=== PATIENT | male | born 1965 | race Caucasian/White ===

== ENCOUNTER 2017-04-26 23:15 | Emergency (ER) | payer BC ==
[~2017-04-26] VITALS: Ht 180.3 cm; Wt 106.8 kg
[~2017-04-26 23:15] MED LIST: ALPRAZOLAM0.5 MG PO; LORTAB 5-325 M1 EACH PO; MOTRIN600 MG PO; NOHOMEMEDS; SERTRALINE HCL100 MG PO
[2017-04-27 00:06] LABS: BASOPHIL COUNT 0.1 K/uL (0-0.1); EOSINOPHIL (%) 1.4 % (0-5); EOSINOPHIL COUNT 0.1 K/uL (0-0.3); HEMATOCRIT 43.8 % (38.0-50.0); IMMATURE GRANULOCYTE (%) 0.4 % (0.0-0.7); INSTRUMENT ABS NEUTROPHIL CT 5.8 K/uL; LYMPHOCYTE COUNT 1.3 K/uL (1.0-2.8); MCH 31.2 PG (29.0-34.0); MCHC 33.8 G/DL (30.0-36.0); MCV 92.4 FL (86-99); MEAN PLAT.VOLUME 9.7 uM^3 (9.0-12.4); MONOCYTE (%) 9.7 % (3-12); MONOCYTE COUNT 0.8 K/uL (0-0.8); NEUTROPHIL (%) 71.6 % (45-76); NEUTROPHIL COUNT 5.8 K/uL (1.8-6.4); PLATELET COUNT 176 K/uL (156-360); RBC DIS.WIDTH-CV 12.4 % (11.8-14.6); RBC DIS.WIDTH-SD 42.5 % (39-53); RED BLOOD COUNT 4.74 M/uL (4.00-5.50); WHITE BLOOD COUNT 8.1 K/uL (4.1-10.2)
[2017-04-27 00:18] LABS: CHLORIDE 106 mEq/L (99-109); POTASSIUM 3.2 mEq/L (3.7-5.4)
[2017-04-27 00:19] LABS: SODIUM 143 mEq/L (136-147)
[2017-04-27 00:21] LABS: GLUCOSE 89 mg/dL (70-99)
[2017-04-27 00:22] LABS: ANION GAP 13 MEQ/L (2-14)
[2017-04-27 00:23] LABS: TOTAL BILIRUBIN 0.4 mg/dL (0.0-1.0)
[2017-04-27 00:24] LABS: ALKALINE PHOSPHATASE 59 IU/L (3-129); SERUM ETHYL ALCOHOL 60 mg/dL
[2017-04-27 00:25] LABS: GFR ESTIMATE (CALCULATED) > 59 mL/min/
[2017-04-27 00:26] LABS: UREA NITROGEN (BUN) 11 mg/dL (9-23)
[2017-04-27 00:27] LABS: TROP-I INTERPRETATION NEGATIVE; TROPONIN-I < 0.01 ng/mL (0.0-0.30)
[2017-04-27 02:02] VITALS: BP 103/54
== END 2017-04-27 02:03 | disposition home or self-care (01) ==
LOC: EME 23:15
PROVIDERS: Emergency Medicine
DX: R55 Syncope and collapse (principal); R42 Dizziness and giddiness; R11.0 Nausea; T43.215A Adverse effect of selective serotonin and norepinephrine reuptake inhibitors, initial encounter; F10.99 Alcohol use, unspecified with unspecified alcohol-induced disorder; Y90.3 Blood alcohol level of 60-79 mg/100 ml
CPT/HCPCS: 71020; 80053; 84484; 85025; 93005; 99281; 99284; G0480; J7030